=== PATIENT | female | born 1950 | race Caucasian/White ===

== ENCOUNTER 2018-04-24 06:08 | Inpatient (IN) | payer MEDICARE, BC ==
[2018-04-24 06:27] LABS: #Eosinphils 0.1 thou/uL (0.0-0.7); #Lymphocytes 2.2 thou/uL (1.20-3.40); #Monocytes 1.2 thou/uL (0.11-0.59); #Neutrophils 9.3 thou/uL (1.40-6.50); %Basophils 0.2 % (0.0-1.0); %Eosinophils 0.4 % (0.0-10.0); %Monocytes 9.3 % (0.0-10.0); %Neutrophils 73.1 % (42.0-75.0); Hemoglobin 13.3 g/dL (12.0-16.0); Mean Corpuscular HGB CONC 34.6 g/dL (32.0-36.0); Mean Corpuscular Hemoglobin 32.5 pg (27.0-31.0); Mean Platelet Volume 7.5 fL (7.4-10.4); Platelet Count 208 thou/uL (130-400); RBC Distribution Width 13.5 % (11.5-14.5); Red Blood Cell (RBC) Count 4.11 mill/uL (4.20-5.40); White Blood Cell (WBC) Count 12.7 thou/uL (4.8-10.8)
[2018-04-24 06:48] LABS: ALT (SGPT) 12 U/L (8-55); AST (SGOT) 14 U/L (5-34); Albumin 3.8 g/dL (3.4-4.8); Alkaline Phosphatase 46 U/L (40-150); Anion Gap 14 mmol/L (10-20); BUN (Urea Nitrogen) 11 mg/dL (9.8-20.1); Bilirubin, Total 1.1 mg/dL (0.2-1.2); Calc. Creatinine Clearance 0 mL/min (70-130); Calcium 9.3 mg/dL (7.8-10.44); Carbon Dioxide 25 mmol/L (23-31); Chloride 98 mmol/L (98-107); Estimated GFR-MDRD 68; Globulin 2.8 g/dL (2.4-3.5); Glucose 119 mg/dL (80-115); Protein, Total 6.6 g/dL (6.0-8.3); Sodium 132 mmol/L (136-145)
[2018-04-24 06:53] LABS: CKMB 0.6 ng/mL (0-6.6); Troponin I Less than 0.010 ng/mL (< 0.028)
[2018-04-24] MEDS ORDERED: Water For Inject, Bacteriostat 30 ML ONE (07:03)
[2018-04-24] MEDS ORDERED: methylPREDNISolone Sod Succ/PF 125 MG/2 ML VIAL ONE (07:03)
[2018-04-24] MEDS ORDERED: Fentanyl 100 MCG/2 ML VIAL ONE (07:05)
--- NOTE | 2018-04-24 08:12 | RAD ---
PORTABLE CHEST 1 VIEW: Date: 04/24/18 Time: 0627 hours HISTORY: Chest pain. FINDINGS/IMPRESSION: The heart size is normal. Aorta is tortuous. The lungs are well expanded with mild atelectatic change s at the left lung bases. No lobar consolidation, pneumothoraces, or large effusions are seen. POS: [facility]
[2018-04-24 10:05] LABS: Troponin I Less than 0.010 ng/mL (< 0.028)
[2018-04-24] MEDS: Nicotine 14 MG PATCH TD SCH (10:25)
[2018-04-24] MEDS ORDERED: Ondansetron HCl/PF 4 MG/2 ML Vial IVP PRN (10:29)
[2018-04-24] MEDS ORDERED: Ondansetron ODT 4 MG TAB PO PRN (10:29)
[2018-04-24 14:44] LABS: Troponin I Less than 0.010 ng/mL (< 0.028)
[2018-04-24] MEDS ORDERED: Ketorolac Tromethamine 30 MG/ML VIAL IVP SCH (16:00)
--- NOTE | 2018-04-24 16:45 | HP ---
PRIMARY CARE PROVIDER: Angel Rowland M.D. CHIEF COMPLAINT: Chest pain. HISTORY OF PRESENT ILLNESS: Ms. Noriega is a pleasant 67-year-old lady who was seen at [facility] on 04/24/2018. She reports that over the last 3 months, she has had chest pain. She reports that it followed shortly after an ablation. She reports that it is on and off, no known aggravating or relieving factors, 10/10 at its worst, both burning and sharp, radiating down left arm or to the back and around left breast. Pain is improved with sitting forward and worse with deep br eathing. It is also worse with lying down. It is accompanied by nausea and vomiting as well as shor tness of breath. The patient denies paroxysmal nocturnal dyspnea. She reports palpitations when she is in atrial flutter. She denies any dyspnea on exertion or fevers. She was hospitalized at [facility] approximately 2 weeks ago. She was subsequent ly discharged on prednisone which she took for 6 days. She was symptom free when she was taking pred nisone. However, after stopping prednisone, she started having her symptoms again. She also reports that after starting amiodarone a few months ago, she has started noticing a meléndez ismael m over both eyes, headaches, feeling hot and sweaty. The patient also reports constipation, rhinorrhea, and pruritus after starting amiodarone. REVIEW OF SYSTEMS: All other systems reviewed and found to be negative. PAST MEDICAL HISTORY: Significant for coronary artery disease, status post PCI with stent in 2006, m yocardial infarction in 2008, atrial fibrillation, atrial flutter with previous ablations, and perman ent pacemaker in 2016. PAST SURGICAL HISTORY: Significant for hysterectomy, cataract surgery, multiple ablations and perman ent pacemaker placement. FAMILY HISTORY: Congestive heart failure in both mother and father. SOCIAL HISTORY: The patient smokes half a pack of cigarettes a day. Rare alcohol use. No recreatio nal drug use. ALLERGIES: GABAPENTIN and PENICILLIN. CURRENT MEDICATIONS: Amiodarone 200 mg daily, apixaban 5 mg 2 times a day, aspirin 81 mg daily, Vasc epa 1 gram daily, Toprol-XL 25 mg daily, vitamin D3 complete caplet 1 tablet daily, Pravachol 20 mg a t bedtime. PHYSICAL EXAMINATION: GENERAL: Mr. Noriega is awake and alert, not in acute distress. VITAL SIGNS: Blood pressure is 99/53, pulse is 70. She is breathing at rate of 16 and saturating 95 % on room air. She is afebrile. EYES: No scleral icterus. No conjunctival pallor. ENT: Moist mucosal membranes, no oropharyngeal erythema or exudates. NECK: Supple, nontender, normal range of movement. Trachea is midline. RESPIRATORY: Accessory muscles of breathing are not active. Chest wall movements are symmetric bila terally. LUNGS: Clear to auscultation, without wheeze, rhonchi or crepitations. CARDIOVASCULAR: S1 and S2 are heard, regular. Peripheral pulses palpable. No carotid bruit, no per icardial rub. ABDOMEN: Soft, nontender, bowel sounds are heard, no hepatomegaly, no splenomegaly. NEUROLOGIC: Cranial nerves II-XII intact. Deep tendon reflexes are 2+. MUSCULOSKELETAL: Power is 5/5 in all 4 extremities. SKIN: No rashes or subcutaneous nodules. LYMPHATIC: No cervical lymphadenopathy. PSYCHIATRIC: Normal mood, normal affect, patient is oriented to person, place, and time. LABORATORY DATA: Ms. Noriega's labs and investigations were reviewed. I reviewed her electrocardiogra m, which shows electronic ventricular paced rhythm. In the first half of the 12-lead electrocardiogr am, she appears to be in atrial flutter whereas in the second half, she is an only ventricular paced rhythm. I also reviewed her chest x-ray, which does not show any pulmonary infiltrates. She has sen kocytosis with 12,700 white cells, of which 73% are neutrophils, normal hemoglobin, normal platelet c ount, ESR of 28, C-reactive protein of 10.03, troponin I that is negative x3, decreased sodium of 132 and otherwise unremarkable comprehensive metabolic profile. BNP is mildly elevated at 215. ASSESSMENT AND PLAN: Ms. Noriega is a pleasant 67-year-old lady who was seen at [facility] on 04/24/2018. Her problem list includes: 1. Chest pain: Most likely secondary to recurrent pericarditis. 2. Recurrent pericarditis: Patient has been started on steroids by the emergency room physician bec ause of concern over starting her on nonsteroidal anti-inflammatory agents, since she is already on E liquis. Even with steroids, she is at risk of gastrointestinal bleed. I will start her on PPI and c ontinue the steroids. Because of a recurrent episode of pericarditis, we will also start patient on colchicine. We will request Cardiology Service for opinion and help with management. 3. Hypothyroidism: Continue Synthroid, check TSH level. 4. Tobacco abuse: Start nicotine replacement therapy. The patient has been counseled regarding tob acco cessation. Many thanks for allowing me to participate in your patient's care. Please feel free to contact me wi th any questions or concerns. LEVEL OF RISK: High. LEVEL OF COMPLEXITY: High.
[2018-04-24] MEDS: Apixaban 5 MG TAB PO SCH (20:19)
[2018-04-24] MEDS: Colchicine 0.6 MG TAB PO SCH (20:19)
[2018-04-24] MEDS ORDERED: Icosapent Ethyl [Vascepa] 1 GM PO SCH (21:00)
[2018-04-24] MEDS ORDERED: Pravastatin Sodium 20 MG TAB PO SCH (21:00)
[2018-04-24] MEDS: Ibuprofen 800 MG TAB PO SCH (21:42)
[2018-04-24 22:19] LABS: Hemoglobin 11.3 g/dL (12.0-16.0); Platelet Count 170 thou/uL (130-400)
[2018-04-25] MEDS: Ibuprofen 800 MG TAB PO SCH ×2 (05:24→14:03)
[2018-04-25 05:37] LABS: #Monocytes 0.5 thou/uL (0.11-0.59); #Neutrophils 11.8 thou/uL (1.40-6.50); %Basophils 0.2 % (0.0-1.0); %Eosinophils 0.1 % (0.0-10.0); %Lymphocytes 7.3 % (21.0-51.0); %Monocytes 3.4 % (0.0-10.0); Hemoglobin 11.6 g/dL (12.0-16.0); Mean Corpuscular Hemoglobin 31.8 pg (27.0-31.0); Mean Corpuscular Volume 93.7 fl (81.0-99.0); Mean Platelet Volume 8.1 fL (7.4-10.4); Platelet Count 178 thou/uL (130-400); RBC Distribution Width 13.4 % (11.5-14.5); Red Blood Cell (RBC) Count 3.66 mill/uL (4.20-5.40); White Blood Cell (WBC) Count 13.3 thou/uL (4.8-10.8)
[2018-04-25 05:49] LABS: Anion Gap 12 mmol/L (10-20); BUN (Urea Nitrogen) 12 mg/dL (9.8-20.1); Calc. Creatinine Clearance 83 mL/min (70-130); Calcium 9.1 mg/dL (7.8-10.44); Carbon Dioxide 23 mmol/L (23-31); Chloride 102 mmol/L (98-107); Estimated GFR-MDRD 80; Glucose 164 mg/dL (80-115); Potassium 3.9 mmol/L (3.5-5.1); Sodium 133 mmol/L (136-145)
[2018-04-25] MEDS ORDERED: Levothyroxine Sodium 50 MCG TAB PO SCH (06:00)
--- NOTE | 2018-04-25 08:25 | CON ---
DATE OF CONSULTATION: 04/24/2018 REASON FOR CONSULTATION: Recurrent pain. HISTORY OF PRESENT ILLNESS: Hari is a very pleasant 67-year-old woman, who is a patient of Dr. Kellee Araujo. The patient has an AFib ablation in 01/2018 at the [facility]. Марина rtly after the procedure, she developed sharp pain that is similar to her current discomfort. Her pa in not has been intermittent for the last 3 months. She had an [facility] [place]. She was given Toradol with relief. She has also been seen and evaluated by Dr. Luisana Araujo. She is on antibiotic therapy and steroid treatment. She recently presented with acute onset chest pain, better with sitting up and worse with lying down. It is sharp in nature. She had a recent stress study which was negative for ischemia. She also had coronary angiograp hy 2 years ago that was negative. PAST MEDICAL HISTORY: Atrial fibrillation, status post ablation, hypothyroidism, previous TX, hypert ension, hyperlipidemia, and stent placement. ALLERGIES: GABAPENTIN. MEDICATIONS: Include aspirin, Eliquis, pravastatin, metoprolol, Vascepa, and amiodarone. REVIEW OF SYSTEMS: A 10-point systems is reviewed as above negative. PHYSICAL EXAMINATION: VITAL SIGNS: Blood pressure 106/58, pulse 70, and temperature 98. NEUROLOGIC: The patient is alert and oriented times 3 with no focal neurologic deficits. HEENT: Sclerae without icterus. Mouth has moist mucous membranes with normal pallor. NECK: No JVD. Carotid upstroke brisk. No bruits bilaterally. LUNGS: Clear to auscultation with unlabored respirations. BACK: No scoliosis or kyphosis. CARDIAC: Regular rate and rhythm with normal S1 and S2. No S3 or S4 noted. No significant rubs, murmurs, thrills, or gallops noted throughout the precordium. PMI is not displaced. There is no parasternal heave. ABDOMEN: Soft, nontender, nondistended. No peritoneal signs present. No hepatosplenomegaly. No abnormal striae. EXTREMITIES: 2+ femoral and 2+ dorsalis pedis pulses. No cyanosis, clubbing, or edema. SKIN: No gross abnormalities. IMPRESSION: Hepatitis. RECOMMENDATIONS: Ms. Noriega's symptoms are suggestive of as pain better with sitting up and wor se with lying down. She has had recent ablation. We will check echo with Doppler. We will give her a dose of Toradol and give ibuprofen on a scheduled basis. We will continue colchicine. On steroid therapy, there is a high risk of recurrence. We will try and avoid steroid treatment. This could d ischarge in the next 1-2 days.
[2018-04-25] MEDS ORDERED: Multivitamin W/ Minerals 1 TAB PO SCH (09:00)
[2018-04-25] MEDS ORDERED: Icosapent Ethyl [Vascepa] 1 GM PO SCH (09:00)
[2018-04-25] MEDS: Colchicine 0.6 MG TAB PO SCH (09:10)
[2018-04-25] MEDS: Apixaban 5 MG TAB PO SCH (09:11)
[2018-04-25 09:16] VITALS: BMI 27.9
[2018-04-25] MEDS: Nicotine 14 MG PATCH TD SCH (11:11)
--- NOTE | 2018-04-25 11:38 | PDOC.PN ---
- Subjective Encounter Start Date: 04/25/18 Encounter Start Time: 07:00 Pt seen for followup re: acute pericarditis. Denies chest pain, shortness of breath, fevers or chills. - Objective Resuscitation Status: Resuscitation Status FULL:Full Resuscitation MAR Reviewed: Yes Vital Signs & Weight: Vital Signs (12 hours) Temp Pulse Resp BP Pulse Ox 04/25/18 08:45 98.7 F 73 16 144/65 H 95 04/25/18 04:00 98.8 F 75 17 124/64 95 Weight Admit Weight 157 lb Weight 157 lb 14.4 oz I&O: 04/24/18 04/25/18 04/26/18 06:59 06:59 06:59 Intake Total 800 Output Total 1200 Balance -400 Result Diagrams: 04/25/18 04:44 04/25/18 04:44 EKG Reviewed by me: Yes (Tele: NSR) Phys Exam - Physical Examination Constitutional: NAD HEENT: moist MMs, sclera anicteric, oral pharynx no lesions, 2+ tonsils Neck: no nodes, no JVD, supple, full ROM Respiratory: no wheezing, no rales, no rhonchi, clear to auscultation bilateral Cardiovascular: RRR, no rub S1, S2 Gastrointestinal: soft, non-tender, no distention, positive bowel sounds Neurological: moves all 4 limbs Psychiatric: normal affect, A&O x 3 Dx/Plan (1) Acute pericarditis Code(s): I30.9 - ACUTE PERICARDITIS, UNSPECIFIED Status: Acute Comment: Improving, continue NSAIDs and colchicine (2) HTN (hypertension) Code(s): I10 - ESSENTIAL (PRIMARY) HYPERTENSION Status: Chronic Comment: controlled and at goal (3) Hypothyroidism Code(s): E03.9 - HYPOTHYROIDISM, UNSPECIFIED Status: Chronic Comment: TSH normal, continue synthroid (4) Dyslipidemia Code(s): E78.5 - HYPERLIPIDEMIA, UNSPECIFIED Status: Chronic Comment: continue statin - Plan * . Hold apixaban for any procedures. Pt will d/w cardiology service re: amiodarone and side effects. Review of Systems - Review of Systems Constitutional: negative: fever, chills, sweats, weakness, malaise Respiratory: negative: Cough, Shortness of Breath, SOB with Excertion, Pleuritic Pain, Wheezing Cardiovascular: negative: chest pain, palpitations, orthopnea, paroxysmal nocturnal dyspnea, edema, light headedness Gastrointestinal: negative: Nausea, Vomiting, Abdominal Pain, Diarrhea, Constipation, Melena, Hematochezia Genitourinary: negative: Dysuria, Frequency, Incontinence, Hematuria, Retention Skin: negative: Rash, Lesions, Abner, Bruising - Medications/Allergies Allergies/Adverse Reactions: Allergies Allergy/AdvReac Type Severity Reaction Status Date / Time gabapentin [From Neurontin] Allergy Verified 04/24/18 09:31 Penicillins Allergy Verified 04/24/18 09:31 Medications: Current Medications Aspirin (Aspirin Chewable) 81 mg PO DAILY [facility] Last Admin: 04/25/18 09:10 Dose: 81 mg Colchicine (Colcrys) 0.6 mg PO BID [facility] Last Admin: 04/25/18 09:10 Dose: 0.6 mg Ibuprofen (Motrin) 800 mg PO Q8HR [facility] Last Admin: 04/25/18 05:24 Dose: 800 mg Iron/Minerals/Multivitamins (Theragran M) 1 tab PO DAILY [facility] Last Admin: 04/25/18 09:10 Dose: 1 tab Levothyroxine Sodium (Synthroid) 50 mcg PO 0600 [facility] Last Admin: 04/25/18 05:24 Dose: 50 mcg Metoprolol Succinate (Toprol Xl) 25 mg PO DAILY [facility] Last Admin: 04/25/18 09:10 Dose: 25 mg Morphine Sulfate (Morphine) 2 mg SLOW IVP Q6H PRN PRN Reason: Pain Last Admin: 04/25/18 09:11 Dose: 2 mg Nicotine (Nicoderm Patch) 14 mg TD Q24HR [facility] Last Admin: 04/24/18 10:25 Dose: Not Given Pantoprazole Sodium (Protonix) 40 mg PO DAILY [facility] Last Admin: 04/25/18 09:10 Dose: 40 mg Icosapent Ethyl [ (Vascepa] 1 Gm) 1 each PO HS [facility] Last Admin: 04/24/18 21:42 Dose: 1 each Pravastatin Sodium (Pravachol) 20 mg PO HS [facility] Last Admin: 04/24/18 20:26 Dose: 20 mg Sodium Chloride (Flush - Normal Saline) 10 ml IVF Q12HR [facility] Last Admin: 04/25/18 09:10 Dose: 10 ml Sodium Chloride (Flush - Normal Saline) 10 ml IVF PRN PRN PRN Reason: Saline Flush Last Admin: 04/24/18 17:29 Dose: 10 ml
--- NOTE | 2018-04-25 17:34 | PDOC.EVN ---
Event Note - Event Note Event Note: Discussed with patient re: need for anticoagulation. She is under the impression she may have a cardiac cath over next few days. Discussed alternatives to apixaban, including Lovenox. patient is agreeable to Lovenox.
[2018-04-25 17:38] VITALS: BP 146/71; TEMP 98.3
[2018-04-25] MEDS ORDERED: Enoxaparin Sodium 80 MG/0.8 ML SYRINGE SC SCH (21:00)
--- NOTE | 2018-04-26 00:05 | PDOC.CTH ---
Cardiology Progress Note - Subjective Patient see approximately 1410 6.19. Doing well. no complaints. CP much improved. Awaiting ECHO results. Off Amio and feeling better. Wants to discuss alternative. - Objective Vital Signs Temp Pulse Resp BP Pulse Ox 04/25/18 16:00 98.3 F 74 18 146/71 H 96 04/25/18 12:55 98.1 F 72 18 130/88 96 Admit Weight 157 lb Weight 157 lb 14.4 oz 04/24/18 04/25/18 04/26/18 06:59 06:59 06:59 Intake Total 800 997 Output Total 1200 550 Balance -400 447 - Physical Examination General/Neuro: alert & oriented x3 Lungs: CTA Heart: RRR Abdomen: NT/ND Extremities: other: (no edema) - Telemetry Telemetry Rhythm: SR - Labs Result Diagrams: 04/25/18 04:44 04/25/18 04:44 Troponin/CKMB CK-MB (CK-2) 0.6 ng/mL (0-6.6) 04/24/18 06:22 Troponin I Less than 0.010 ng/mL (< 0.028) 04/24/18 13:56 - Assessment/Plan 1. CP - most likely related to pericarditis. ECHO done and pending read. Will r/ o effusion or other abnormality. If stable, probably home today. 2. AFib - s/p PVAI 01/2018. Intolerance to Amio. Consider change to Multaq. Continue NOAC.
--- NOTE | 2018-04-26 13:27 | DIS ---
DATE OF ADMISSION: 04/24/2018 DATE OF DISCHARGE: 04/25/2018 DISCHARGE DIAGNOSIS: Acute pericarditis. CONDITION OF PATIENT ON THE DAY OF DISCHARGE: Stable. I assessed Ms. Noriega on the day of discharge. Please refer to my daily progress note for further details regarding this [id number] encounter. CONSULTATIONS DURING THIS HOSPITALIZATION: Cardiology, Dr. Purvis. DISCHARGE MEDICATIONS: Amiodarone 200 mg daily, apixaban 5 mg 2 times a day, aspirin 81 mg daily, co lchicine 0.6 mg daily, ibuprofen 800 mg 3 times a day for 14 days, to be reassessed after that date. Vascepa 1 gram daily, Synthroid 50 mcg daily, Toprol-XL 25 mg daily, vitamin D3 complete caplet 1 ta blet daily, nicotine 14 mg patch daily, Protonix 40 mg daily, pravastatin 20 mg at bedtime. HOSPITAL COURSE: Ms. Noriega is a pleasant 67-year-old lady who was admitted to [facility] on 04/24/2018 for acute recurrent pericarditis. She was seen by Cardiology Service. She was treated with steroids in the emergency room, subsequently switched to nonsteroidal anti-inflamma tory agents along with PPI and colchicine. She improved clinically. Chest pain resolved. A 2D echo cardiogram showed left ventricular ejection fraction of 45%-50%, moderate mitral regurgitation, and m [id number] tricuspid regurgitation. She was cleared for discharge by Cardiology Service and is being discharged home on the medications described above. On the day of discharge, she had white count 13,300, hemoglobin 11.6, and platelet count 178,000. So dium was 133, potassium 3.9, and creatinine 0.72. Her TSH was normal during this hospitalization. Many thanks for allowing me to participate in your patient's care. Please feel free to contact me wi th any questions or concerns. DISCHARGE DESTINATION: Home. TOTAL AMOUNT OF TIME SPENT COORDINATING THIS DISCHARGE: 32 minutes.
== END 2018-04-25 18:43 | disposition home or self-care (01) | DRG 316 ==
LOC: ERS 06:08 → 2NO 09:20
PROVIDERS: ADMIT Internal Medicine; ATTEND Internal Medicine
DX: I30.9 Acute pericarditis, unspecified (principal); I48.91 Unspecified atrial fibrillation; Z79.01 Long term (current) use of anticoagulants; Z79.82 Long term (current) use of aspirin; I10 Essential (primary) hypertension; E03.9 Hypothyroidism, unspecified; E78.5 Hyperlipidemia, unspecified; I25.2 Old myocardial infarction; I25.10 Atherosclerotic heart disease of native coronary artery without angina pectoris; Z95.5 Presence of coronary angioplasty implant and graft; Z72.0 Tobacco use; K75.9 Inflammatory liver disease, unspecified; Z95.0 Presence of cardiac pacemaker
CPT/HCPCS: 36415; 71045; 80048; 80053; 82553; 82575; 83880; 84443; 84484; 85025; 85652; 86140; 93005; 93306; 96361; 96374; 96375; 99406; A4216; J1885; J2270; J2920; J2930; J3010

== ENCOUNTER → 2022-10-07 | Emergency (ER) | payer MEDICARE, BC ==
[~2022-10-07] MED LIST: Acetaminophen 325 MG TAB ONE; Bacitracin 1 PK ONE; Boostrix 0.5 ML (Tdap) VIAL (>/=7 yrs of age) ONE; HYDROcodone/Acetaminophen 5/325 mg Tablet ONE
[2022-10-07 12:46] LABS: #Eosinphils 0.2 thou/uL (0.0-0.7); #Lymphocytes 2.3 thou/uL (1.20-3.40); #Monocytes 0.6 thou/uL (0.11-0.59); #Neutrophils 4.6 thou/uL (1.40-6.50); %Basophils 0.4 % (0.0-1.0); %Eosinophils 2.1 % (0.0-10.0); %Lymphocytes 30.1 % (21.0-51.0); %Monocytes 7.4 % (0.0-10.0); Hemoglobin 12.7 g/dL (12.0-16.0); Mean Corpuscular HGB CONC 32.5 g/dL (32.0-36.0); Mean Corpuscular Hemoglobin 30.4 pg (27.0-31.0); Mean Corpuscular Volume 93.3 fl (78.0-98.0); Mean Platelet Volume 9.3 fL (7.4-10.4); Platelet Count 180 10x3/uL (130-400); RBC Distribution Width 12.7 % (11.5-14.5); Red Blood Cell (RBC) Count 4.17 mill/uL (4.20-5.40); White Blood Cell (WBC) Count 7.6 10x3/uL (4.8-10.8)
[2022-10-07 13:08] LABS: ALT (SGPT) 12 U/L (8-55); AST (SGOT) 19 U/L (5-34); Albumin 4.1 g/dL (3.4-4.8); Alkaline Phosphatase 54 U/L (40-110); Anion Gap 14 mmol/L (10-20); BUN (Urea Nitrogen) 14 mg/dL (9.8-20.1); Bilirubin, Total 0.5 mg/dL (0.2-1.2); Calc. Creatinine Clearance 0 mL/min (70-130); Calcium 9.4 mg/dL (7.8-10.44); Carbon Dioxide 24 mmol/L (23-31); Chloride 100 mmol/L (98-107); Estimated GFR 74; Globulin 2.7 g/dL (2.4-3.5); Glucose 103 mg/dL (83-110); Potassium 4.8 mmol/L (3.5-5.1); Protein, Total 6.8 g/dL (5.8-8.1); Sodium 133 mmol/L (136-145)
== END ==
LOC: ERS 12:13
DX: S00.11XA Contusion of right eyelid and periocular area, initial encounter (principal); S80.212A Abrasion, left knee, initial encounter; S60.512A Abrasion of left hand, initial encounter; S60.511A Abrasion of right hand, initial encounter; E78.00 Pure hypercholesterolemia, unspecified; E03.9 Hypothyroidism, unspecified; I10 Essential (primary) hypertension; W18.39XA Other fall on same level, initial encounter; Z23 Encounter for immunization; Z79.01 Long term (current) use of anticoagulants; Z79.82 Long term (current) use of aspirin; Z79.899 Other long term (current) drug therapy
CPT/HCPCS: 36415; 70450; 70486; 71045; 72125; 72170; 80053; 85025; 90471; 90715; 93005; 94760

== ENCOUNTER 2024-12-20 19:19 | Inpatient (IN) | payer MEDICARE, BC ==
[~2024-12-20 19:19] MED LIST changes: -Acetaminophen 325 MG TAB ONE; -Bacitracin 1 PK ONE; -Boostrix 0.5 ML (Tdap) VIAL (>/=7 yrs of age) ONE; -HYDROcodone/Acetaminophen 5/325 mg Tablet ONE; +Iopamidol-370 76% 500 ML MDV (1 ML CHARGE) ONE
[2024-12-20 19:47] LABS: #Basophils 0.05 10x3/uL (0.0-0.2); %Basophils 0.7 % (0.0-1.0); %Lymphocytes 27.3 % (21.0-51.0); %Neutrophils 59.7 % (42.0-75.0); Hematocrit 40.8 % (36.0-47.0); Hemoglobin 13.8 g/dL (12.0-16.0); Mean Corpuscular HGB CONC 33.8 g/dL (32.0-36.0); Mean Corpuscular Hemoglobin 30.1 pg (27.0-31.0); Mean Corpuscular Volume 88.9 fL (78.0-98.0); Mean Platelet Volume 9.9 fL (7.4-10.4); Platelet Count 253 10x3/uL (130-400); RBC Distribution Width 13.7 % (11.5-14.5); Red Blood Cell (RBC) Count 4.59 mill/uL (4.20-5.40)
[2024-12-20 20:07] LABS: Bacteria/HPF None Seen HPF (None Seen); Bilirubin Negative (Negative); Blood, Urine Negative (Negative); CAUTI Indications for Culture Pelvic or flank pain; Clarity Clear (Clear); Glucose, Urine (Dipstick) Normal (Negative); Ketone, Urine Negative (Negative); Leukocyte Negative Leu/uL (Negative); Nitrite Negative (Negative); Protein, Urine (Dipstick) Negative (Neg-Trace); RBC/HPF 0-3 HPF (0-3); Specific Gravity, Urine 1.016 (1.002-1.036); Squamous Epithelial 0-3 HPF (0-3); Urobilinogen Normal mg/dL (Less than 2); WBC/HPF 0-3 HPF (0-3)
[2024-12-20 20:10] LABS: Urine Culture Reflex No No
[2024-12-20] MEDS ORDERED: Promethazine HCl 25 MG/ML VIAL ONE (20:16)
[2024-12-20] MEDS ORDERED: Morphine 4 MG/ML VIAL ONE (20:16)
[2024-12-20 20:17] LABS: ALT (SGPT) 13 U/L (Less than 34); AST (SGOT) 23 U/L (11-34); Albumin 3.9 g/dL (3.1-4.5); Alkaline Phosphatase 74 U/L (40-110); Anion Gap 11 mmol/L (10-20); BUN (Urea Nitrogen) 14 mg/dL (9.8-20.1); Bilirubin, Total 0.4 mg/dL (0.3-1.2); Calc. Creatinine Clearance 0 mL/min (70-130); Calcium 9.8 mg/dL (7.8-10.44); Carbon Dioxide 27 mmol/L (23-31); Chloride 99 mmol/L (98-107); Estimated GFR 58; Globulin 3.6 g/dL (2.4-3.5); Glucose 114 mg/dL (83-110); Lipase 59 U/L (8-78); Protein, Total 7.5 g/dL (5.8-8.1); Sodium 133 mmol/L (136-145)
[2024-12-20 20:21] LABS: Troponin I Less than 0.010 ng/mL (< 0.028)
[2024-12-20] MEDS ORDERED: Morphine 2 MG/ML VIAL ONE (22:16)
[2024-12-20] MEDS ORDERED: Sodium Chloride 0.9% 1,000 ML IV SCH (23:30)
[2024-12-20] MEDS ORDERED: Acetaminophen 325 MG TAB PO PRN (23:38)
[2024-12-21] MEDS: Ondansetron PF 4 MG/2 ML Vial IVP PRN (00:57)
[2024-12-21] MEDS: Sodium Chloride 0.9% 1,000 ML IV SCH (00:58)
[2024-12-21] MEDS: Nicotine 14 MG PATCH TD SCH (00:58)
[2024-12-21 01:18] VITALS: BMI 28.5
[2024-12-21] MEDS: Morphine 2 MG/ML VIAL SLOW IVP PRN (01:49)
[2024-12-21] MEDS: Morphine 2 MG/ML VIAL SLOW IVP SCH (02:40)
[2024-12-21] MEDS: Ketorolac Tromethamine 30 MG (1 mL) VIAL IVP SCH ×2 (02:50→18:02)
[2024-12-21 04:54] LABS: #Basophils 0.04 10x3/uL (0.0-0.2); %Basophils 0.3 % (0.0-1.0); %Eosinophils 0.8 % (0.0-10.0); %Lymphocytes 7.6 % (21.0-51.0); %Monocytes 4.5 % (0.0-10.0); %Neutrophils 86.4 % (42.0-75.0); Hematocrit 41.6 % (36.0-47.0); Hemoglobin 13.7 g/dL (12.0-16.0); Mean Corpuscular HGB CONC 32.9 g/dL (32.0-36.0); Mean Corpuscular Volume 91.2 fL (78.0-98.0); Mean Platelet Volume 10.3 fL (7.4-10.4); Platelet Count 233 10x3/uL (130-400); RBC Distribution Width 13.9 % (11.5-14.5); Red Blood Cell (RBC) Count 4.56 mill/uL (4.20-5.40)
[2024-12-21 05:08] LABS: Anion Gap 15 mmol/L (10-20); BUN (Urea Nitrogen) 12 mg/dL (9.8-20.1); Calc. Creatinine Clearance 76 mL/min (70-130); Calcium 8.8 mg/dL (7.8-10.44); Carbon Dioxide 21 mmol/L (23-31); Chloride 102 mmol/L (98-107); Estimated GFR 90; Glucose 147 mg/dL (83-110); Potassium 4.4 mmol/L (3.5-5.1); Sodium 134 mmol/L (136-145)
[2024-12-21] MEDS ORDERED: Labetalol HCl 100 MG/20 ML VIAL SLOW IVP PRN (08:02)
[2024-12-21] MEDS ORDERED: MD-Gastroview 120 ML BOT ONE (11:26)
[2024-12-21] MEDS ORDERED: Morphine 2 MG/ML VIAL SLOW IVP PRN (13:09)
[2024-12-21] MEDS: Morphine 4 MG/ML VIAL SLOW IVP PRN (13:22)
[2024-12-21] MEDS: Enoxaparin 40 MG (0.4 mL) SYRINGE SC SCH (21:12)
[2024-12-21 23:14] LABS: Hematocrit 32.4 % (36.0-47.0); Hemoglobin 10.9 g/dL (12.0-16.0); Platelet Count 207 10x3/uL (130-400)
[2024-12-21] MEDS: Pantoprazole 40 MG VIAL IVP SCH (23:14)
[2024-12-22 06:03] LABS: #Basophils 0.03 10x3/uL (0.0-0.2); %Basophils 0.4 % (0.0-1.0); %Eosinophils 4.1 % (0.0-10.0); %Lymphocytes 22.5 % (21.0-51.0); %Monocytes 9.1 % (0.0-10.0); %Neutrophils 63.5 % (42.0-75.0); Hematocrit 29.8 % (36.0-47.0); Hemoglobin 9.8 g/dL (12.0-16.0); Mean Corpuscular HGB CONC 32.9 g/dL (32.0-36.0); Mean Corpuscular Hemoglobin 30.2 pg (27.0-31.0); Mean Platelet Volume 10.6 fL (7.4-10.4); Platelet Count 186 10x3/uL (130-400); Red Blood Cell (RBC) Count 3.24 mill/uL (4.20-5.40)
[2024-12-22 06:16] LABS: Anion Gap 9 mmol/L (10-20); BUN (Urea Nitrogen) 19 mg/dL (9.8-20.1); Calc. Creatinine Clearance 82 mL/min (70-130); Calcium 8.1 mg/dL (7.8-10.44); Carbon Dioxide 23 mmol/L (23-31); Chloride 106 mmol/L (98-107); Estimated GFR 92; Glucose 86 mg/dL (83-110); Sodium 134 mmol/L (136-145)
[2024-12-22] MEDS: Pantoprazole 40 MG VIAL IVP SCH (08:52)
[2024-12-22 10:50] LABS: Iron 47 ug/dL (50-170); Iron Binding Capacity, Total 234 mcg/dL (265-497)
[2024-12-22 10:51] LABS: Iron 46 ug/dL (50-170); Iron Binding Capacity, Total 234 mcg/dL (265-497)
[2024-12-22 11:44] LABS: Hematocrit 32.4 % (36.0-47.0); Hemoglobin 10.5 g/dL (12.0-16.0)
[2024-12-22] MEDS: Ferrous Sulfate 325 MG TAB PO SCH (13:24)
[2024-12-22] MEDS: Sodium Ferric Gluconate 250 MG in Sodium Chloride 0.9% 250 ML 250 ML IVPB SCH (13:32)
[2024-12-22] MEDS: HYDROcodone/Acetaminophen 5/325 mg Tablet PO PRN (13:49)
[2024-12-22] MEDS: GoLYTELY 4,000 ml Bottle PO SCH (16:03)
[2024-12-22] MEDS: Morphine 2 MG/ML VIAL SLOW IVP PRN (17:44)
[2024-12-22] MEDS ORDERED: Pantoprazole 40 MG VIAL IVP SCH (21:00)
[2024-12-23 07:24] LABS: #Basophils 0.04 10x3/uL (0.0-0.2); %Basophils 0.4 % (0.0-1.0); %Eosinophils 0.8 % (0.0-10.0); %Lymphocytes 13.1 % (21.0-51.0); Hematocrit 29.7 % (36.0-47.0); Hemoglobin 10.1 g/dL (12.0-16.0); Mean Corpuscular Hemoglobin 30.9 pg (27.0-31.0); Mean Corpuscular Volume 90.8 fL (78.0-98.0); Mean Platelet Volume 10.5 fL (7.4-10.4); Platelet Count 189 10x3/uL (130-400); RBC Distribution Width 13.5 % (11.5-14.5); Red Blood Cell (RBC) Count 3.27 mill/uL (4.20-5.40)
[2024-12-23] MEDS: Pantoprazole 40 MG DR.TAB PO SCH (07:32)
[2024-12-23 07:38] LABS: Anion Gap 16 mmol/L (10-20); BUN (Urea Nitrogen) 4 mg/dL (9.8-20.1); Calc. Creatinine Clearance 91 mL/min (70-130); Calcium 8.8 mg/dL (7.8-10.44); Carbon Dioxide 23 mmol/L (23-31); Chloride 99 mmol/L (98-107); Estimated GFR 94; Glucose 96 mg/dL (83-110); Potassium 3.6 mmol/L (3.5-5.1); Sodium 134 mmol/L (136-145)
[2024-12-23] MEDS ORDERED: Midazolam HCl 2 mg/2 ml Vial ONE (10:36)
[2024-12-23] MEDS ORDERED: PROPOFOL 40 ML ONE (10:36)
[2024-12-23] MEDS ORDERED: PHENYLEPHRINE-NS 100 MCG/ML 10 ML SYRINGE ONE (10:42)
[2024-12-23 12:39] VITALS: BP 163/80; TEMP 97.5
[2024-12-24] MEDS ORDERED: Ferrous Sulfate 325 MG TAB PO SCH (09:00)
== END 2024-12-23 14:33 | disposition home or self-care (01) | DRG 388 ==
LOC: ERS 19:19 → SURG B 23:20
PROVIDERS: ADMIT Internal Medicine; ATTEND Internal Medicine
PROC: 0DJ08ZZ Inspection of Upper Intestinal Tract, Via Natural or Artificial Opening Endoscopic (ICD-10-PCS; principal; 2024-12-23)
PROC: 0DBK8ZZ Excision of Ascending Colon, Via Natural or Artificial Opening Endoscopic (ICD-10-PCS; 2024-12-23)
PROC: 3E033XZ Introduction of Vasopressor into Peripheral Vein, Percutaneous Approach (ICD-10-PCS; 2024-12-23)
DX: K56.609 Unspecified intestinal obstruction, unspecified as to partial versus complete obstruction (principal); K57.31 Diverticulosis of large intestine without perforation or abscess with bleeding; I48.92 Unspecified atrial flutter; K64.8 Other hemorrhoids; I10 Essential (primary) hypertension; E78.5 Hyperlipidemia, unspecified; I48.91 Unspecified atrial fibrillation; E03.9 Hypothyroidism, unspecified; F10.90 Alcohol use, unspecified, uncomplicated; D64.9 Anemia, unspecified; I25.10 Atherosclerotic heart disease of native coronary artery without angina pectoris; I25.2 Old myocardial infarction; Z88.0 Allergy status to penicillin; Z88.5 Allergy status to narcotic agent; Z79.82 Long term (current) use of aspirin; Z79.02 Long term (current) use of antithrombotics/antiplatelets; Z79.01 Long term (current) use of anticoagulants; Z79.899 Other long term (current) drug therapy; Z95.5 Presence of coronary angioplasty implant and graft; Z90.49 Acquired absence of other specified parts of digestive tract; Z90.710 Acquired absence of both cervix and uterus; Z90.722 Acquired absence of ovaries, bilateral; Z95.0 Presence of cardiac pacemaker
CPT/HCPCS: 36415; 71045; 74019; 74177; 74250; 76705; 80048; 80053; 81001; 82728; 83540; 83550; 83605; 83690; 84484; 85025; 87428; 88305; 93005; 96365; 96375; 96376; J1885; J2250; J2270; J2272; J2405; J2470; J2550; J2704; J2916; J7030; J7050; Q9963; Q9967